=== PATIENT | female | born 1960 | race Caucasian/White ===

== ENCOUNTER 2017-10-23 10:18 | Emergency (ER) | payer OTHER ==
[~2017-10-23] VITALS: Ht 162.6 cm; Wt 72.6 kg
[2017-10-23] MEDS ORDERED: ONDANSETRON HCL 4 MG ORAL DISINTEGRATING TAB PO ONE (10:45)
[2017-10-23] MEDS ORDERED: ACETAMINOPHEN/CODEINE 300MG - 30MG TAB PO ONE (10:45)
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
--- NOTE | 2017-10-23 11:48 | Diagnostic Imaging Report ---
Exam: Forearm 2 views elbow 3 views History: Pain, trauma Comparison: None. Findings: Laceration to the radial forearm. No acute fracture. No elbow joint effusion. Impression: Laceration to the radial forearm. Signed by: Dr. Aki Easley M.D. on 10/23/2017 11:44 AM
[2017-10-23] MEDS ORDERED: NEOMYCIN/POLYMYX/BACITR OINT 0.9 GM PKT ONE (12:20)
[2017-10-23] MEDS ORDERED: TETANUS/DIPHTHERIA TOX ADULT 0.5 ML SYR IM ONE (12:45)
== END 2017-10-23 13:33 | disposition home or self-care (01) ==
LOC: ER 10:18
DX: S00.83XA Contusion of other part of head, initial encounter (principal); S51.812A Laceration without foreign body of left forearm, initial encounter; Y93.55 Activity, bike riding; V19.88XA Pedal cyclist (driver) (passenger) injured in other specified transport accidents, initial encounter; Y92.488 Other paved roadways as the place of occurrence of the external cause; I10 Essential (primary) hypertension
CPT/HCPCS: 70450; 72125; 90471; 90714; 99283